=== PATIENT | female | born 1990 | race Caucasian/White ===

== ENCOUNTER 2017-06-14 20:52 | Emergency (ER) | payer SELFPAY, OTHER ==
[2017-06-15] MEDS: BACTRIM 160MG/800MG DS TAB PO (00:46)
[2017-06-17 00:06] LABS: BORDETELLA PARAPERTUSSIS PCR Negative (Negative); BORDETELLA PERTUSSIS BY PCR Negative (Negative)
== END 2017-06-15 00:47 | disposition home or self-care (01) ==
LOC: M ED 06-15 00:47
DX: J20.9 Acute bronchitis, unspecified (principal); J45.909 Unspecified asthma, uncomplicated; F17.210 Nicotine dependence, cigarettes, uncomplicated
CPT/HCPCS: 71046

== ENCOUNTER 2017-11-19 12:53 | Emergency (ER) | payer MEDICAID, OTHER, SELFPAY | END 2017-11-19 14:49 | disposition home or self-care (01) | LOC: M ED 12:53 | DX: O99.89 Other specified diseases and conditions complicating pregnancy, childbirth and the puerperium (principal); K01.1 Impacted teeth; Z3A.10 10 weeks gestation of pregnancy; Z87.891 Personal history of nicotine dependence; Z79.899 Other long term (current) drug therapy | CPT/HCPCS: 99282 ==

== ENCOUNTER → 2017-11-29 | Outpatient (CLI) | payer OTHER ==
[2017-11-29 13:35] LABS: BASO % 0.3 % (0.0-1.0); EOS # 0.1 10^3/uL (0.0-0.50); EOS % 1.1 % (0.0-3.0); HEMATOCRIT 38.2 % (36.0-47.0); HEMOGLOBIN 12.9 g/dl (12.0-15.5); IMMATURE GRANULOCYTE % 0.3 % (0-3.0); LYMPH # 1.1 10^3/uL (1.5-6.5); LYMPH % 14.3 % (24.0-44.0); MEAN CORPUSCULAR HEMOGLOBIN 30.5 pg (27.0-33.0); MEAN CORPUSCULAR HGB CONC 33.8 g/dl (32.0-36.5); MEAN CORPUSCULAR VOLUME 90.3 fl (80.0-96.0); MONO # 0.3 10^3/uL (0.0-0.8); MONO % 4.2 % (0.0-5.0); NEUTROPHILS # 5.9 10^3/uL (1.8-7.7); NEUTROPHILS % 79.8 % (36.0-66.0); PLATELET COUNT, AUTOMATED 259 10^3/uL (150-450); RED BLOOD COUNT 4.23 10^6/uL (4.00-5.40); RED CELL DISTRIBUTION WIDTH 12.7 % (11.5-14.5); WHITE BLOOD COUNT 7.4 10^3/uL (4.0-10.0)
[2017-11-29 13:52] LABS: TOTAL PROTEIN,RANDOM URINE 27.7 MG/DL (0.0-12.0)
[2017-11-29 13:59] LABS: ALT/SGPT 17 U/L (12-78); AST/SGOT 11 U/L (7-37); BILIRUBIN,TOTAL 0.2 MG/DL (0.2-1.0); CREATININE FOR GFR 0.55 MG/DL (0.55-1.30); FREE T4 0.98 NG/DL (0.76-1.46); GLOMERULAR FILTRATION RATE > 60.0 (>60); LDH LACTATE DEHYDROGENASE 150 U/L (84-246); URIC ACID 2.9 MG/DL (2.6-6.0)
[2017-11-29 15:07] LABS: CHLAMYDIA DNA AMPLIFICATION NEGATIVE (NEGATIVE); GC DNA AMPLIFICATION NEGATIVE (NEGATIVE)
[2017-11-30 13:04] LABS: RUBELLA IgG QUALITATIVE IMMUNE (IMMUNE)
[2017-11-30 13:05] LABS: HBsAg Prenatal NEGATIVE (NEGATIVE)
[2017-11-30 13:33] LABS: HIV 1&2 SCREEN CENTAUR NEGATIVE (NEGATIVE)
[2017-11-30 13:33] LABS: HEPATITIS C VIRUS ABY INDEX < 0.0 INDEX (<0.8)
== END ==
LOC: M SMT 09:57
DX: Z34.81 Encounter for supervision of other normal pregnancy, first trimester (principal); Z36.89 Encounter for other specified antenatal screening; Z3A.08 8 weeks gestation of pregnancy
CPT/HCPCS: 84460

== ENCOUNTER 2017-12-28 14:17 | Emergency (ER) | payer OTHER, MEDICAID ==
[2017-12-28 15:03] LABS: BASO % 0.2 % (0.0-1.0); EOS # 0.1 10^3/uL (0.0-0.50); EOS % 1.1 % (0.0-3.0); HEMATOCRIT 37.3 % (36.0-47.0); HEMOGLOBIN 12.5 g/dl (12.0-15.5); IMMATURE GRANULOCYTE % 0.5 % (0-3.0); LYMPH # 0.9 10^3/uL (1.5-6.5); LYMPH % 9.6 % (24.0-44.0); MEAN CORPUSCULAR HEMOGLOBIN 30.5 pg (27.0-33.0); MEAN CORPUSCULAR HGB CONC 33.5 g/dl (32.0-36.5); MONO # 0.5 10^3/uL (0.0-0.8); MONO % 4.9 % (0.0-5.0); NEUTROPHILS # 7.9 10^3/uL (1.8-7.7); NEUTROPHILS % 83.7 % (36.0-66.0); PLATELET COUNT, AUTOMATED 257 10^3/uL (150-450); RED CELL DISTRIBUTION WIDTH 12.4 % (11.5-14.5); WHITE BLOOD COUNT 9.5 10^3/uL (4.0-10.0)
[2017-12-28 15:10] LABS: KETONE, URINE AUTO RFX NEGATIVE (NEGATIVE); LEUKOCYTE ESTERASE UR AUTO RFX NEGATIVE (NEGATIVE); MUCUS, URINE RFX SMALL (NEGATIVE); NITRITE, URINE AUTO RFX NEGATIVE (NEGATIVE); RBC, URINE AUTO RFX 4 /HPF (0-3); SPECIFIC GRAVITY UR AUTO RFX 1.025 (1.002-1.035); SQUAM EPITHELIAL CELL UR AURFX 1 /HPF (0-6); WBC, URINE AUTO RFX 1 /HPF (0-3)
[2017-12-28] MEDS: NS 1,000 ML IV ×2 (15:46→16:49)
[2017-12-28 15:56] LABS: ANION GAP 8 MEQ/L (8-16); BLOOD UREA NITROGEN 11 MG/DL (7-18); CALCIUM LEVEL 8.6 MG/DL (8.5-10.1); CARBON DIOXIDE LEVEL 24 MEQ/L (21-32); CHLORIDE LEVEL 109 MEQ/L (98-107); CREATININE FOR GFR 0.55 MG/DL (0.55-1.30); GLOMERULAR FILTRATION RATE > 60.0 (>60); GLUCOSE, FASTING 106 MG/DL (70-100); HCG, SERUM QUANTITATIVE 65892 MIU/ML; MAGNESIUM LEVEL 1.8 MG/DL (1.8-2.4); POTASSIUM SERUM 3.8 MEQ/L (3.5-5.1); SODIUM LEVEL 141 MEQ/L (136-145)
== END 2017-12-28 17:20 | disposition home or self-care (01) ==
LOC: M ED 14:17
DX: O26.891 Other specified pregnancy related conditions, first trimester (principal); R11.0 Nausea; I95.1 Orthostatic hypotension; O99.281 Endocrine, nutritional and metabolic diseases complicating pregnancy, first trimester; E86.0 Dehydration; O99.511 Diseases of the respiratory system complicating pregnancy, first trimester; J45.909 Unspecified asthma, uncomplicated; Z3A.12 12 weeks gestation of pregnancy
CPT/HCPCS: 83735

== ENCOUNTER → 2018-01-04 | Outpatient (REF) | payer OTHER | LOC: M LAB REF 16:41 | DX: Z36.89 Encounter for other specified antenatal screening (principal) | CPT/HCPCS: 87086 ==

== ENCOUNTER 2018-02-06 10:49 | Emergency (ER) | payer OTHER ==
[2018-02-06] MEDS: NS 1,000 ML IV (11:34)
[2018-02-06 11:41] LABS: BASO % 0.2 % (0.0-1.0); EOS # 0.1 10^3/uL (0.0-0.50); EOS % 1.7 % (0.0-3.0); HEMATOCRIT 34.9 % (36.0-47.0); HEMOGLOBIN 11.5 g/dl (12.0-15.5); IMMATURE GRANULOCYTE % 0.7 % (0-3.0); LYMPH # 0.9 10^3/uL (1.5-6.5); LYMPH % 10.6 % (24.0-44.0); MEAN CORPUSCULAR HEMOGLOBIN 29.9 pg (27.0-33.0); MEAN CORPUSCULAR VOLUME 90.9 fl (80.0-96.0); MONO # 0.5 10^3/uL (0.0-0.8); MONO % 5.8 % (0.0-5.0); NEUTROPHILS # 6.6 10^3/uL (1.8-7.7); PLATELET COUNT, AUTOMATED 249 10^3/uL (150-450); RED BLOOD COUNT 3.84 10^6/uL (4.00-5.40); RED CELL DISTRIBUTION WIDTH 12.3 % (11.5-14.5); WHITE BLOOD COUNT 8.1 10^3/uL (4.0-10.0)
[2018-02-06 11:55] LABS: INR 0.96; PROTHROMBIN TIME 12.9 SECONDS (12.1-14.4)
[2018-02-06 11:56] LABS: FIBRINOGEN 533 MG/DL (221-452); PARTIAL THROMBOPLASTIN TIME 27.6 SECONDS (25.4-37.6)
[2018-02-06 11:59] LABS: D-DIMER QUANT 353.14 ng/ml (<500)
[2018-02-06 12:08] LABS: ALBUMIN/GLOBULIN RATIO 0.91 (1.00-1.93); ALKALINE PHOSPHATASE 47 U/L (45-117); ALT/SGPT 25 U/L (12-78); AST/SGOT 16 U/L (7-37); BILIRUBIN,DIRECT < 0.1 MG/DL (0.0-0.2); BILIRUBIN,TOTAL 0.2 MG/DL (0.2-1.0); TOTAL PROTEIN 6.3 GM/DL (6.4-8.2)
[2018-02-06 12:16] LABS: ANION GAP 7 MEQ/L (8-16); BLOOD UREA NITROGEN 8 MG/DL (7-18); CALCIUM LEVEL 8.4 MG/DL (8.5-10.1); CARBON DIOXIDE LEVEL 24 MEQ/L (21-32); CHLORIDE LEVEL 109 MEQ/L (98-107); FREE T4 0.85 NG/DL (0.76-1.46); GLOMERULAR FILTRATION RATE > 60.0 (>60); GLUCOSE, FASTING 85 MG/DL (70-100); SODIUM LEVEL 140 MEQ/L (136-145)
[2018-02-06 12:33] LABS: KETONE, URINE AUTO RFX NEGATIVE (NEGATIVE); LEUKOCYTE ESTERASE UR AUTO RFX NEGATIVE (NEGATIVE); NITRITE, URINE AUTO RFX NEGATIVE (NEGATIVE); RBC, URINE AUTO RFX 1 /HPF (0-3); SPECIFIC GRAVITY UR AUTO RFX 1.002 (1.002-1.035); SQUAM EPITHELIAL CELL UR AURFX 5 /HPF (0-6); WBC, URINE AUTO RFX 1 /HPF (0-3)
[2018-02-06] MEDS ORDERED: ISOVUE-370 76% 100ML VIAL (Q9967) As Ordered (12:39)
== END 2018-02-06 14:43 | disposition home or self-care (01) ==
LOC: M ED 10:49
DX: O9A.212 Injury, poisoning and certain other consequences of external causes complicating pregnancy, second trimester (principal); R55 Syncope and collapse; O99.412 Diseases of the circulatory system complicating pregnancy, second trimester; K44.9 Diaphragmatic hernia without obstruction or gangrene; Z3A.18 18 weeks gestation of pregnancy; Z87.891 Personal history of nicotine dependence
CPT/HCPCS: Q9967

== ENCOUNTER → 2018-02-07 | Outpatient (CLI) | payer OTHER ==
[~2018-02-07] MED LIST: AMOX500C PO; BACT800T5 PO; PREN1TAB11 PO
--- NOTE | 2018-02-08 03:12 | REP ---
Clinical: Anatomical evaluation. Comparison: None . Findings: Examination demonstrates a single live intrauterine in breech presentation. motion is identified by technologist. Placenta is noted anterior and grade grade 1 without evidence for placenta previa or abruption. Amniotic fluid volume is normal. Cervix measures 3.7 cm in length and appears closed. No evidence for nuchal cord. Gestational age by LMP 18 weeks 2-day with NANDINI 07/09/2018 . Gestational age by current measurements 18 weeks 3 days with NANDINI 07/08/2018 . FHR equals 141 beats per minute. BPD 4.2 cm 18 weeks 6 days HC 15.4 cm 18 weeks 3 days AC 12.8 cm 18 weeks 3 days FL 2.8 cm 18 weeks 4 days HL 2.7 cm 18 weeks 5 days HC/AC ratio 1.21 Estimated weight 242 grams ( 53rd percentile). Anatomical assessment demonstrates normal structures including cranium, choroid plexus, cavum, cerebellum/posterior fossa, facial features, lungs, diaphragm, stomach, cord insertion/three-vessel cord, kidneys/bladder, spine, and extremities. Impression: Single live intrauterine in breech presentation demonstrating appropriate interval growth. Limited evaluation of the heart/ventricular outflow tracts due to lie may warrant reevaluation and follow-up. Remainder of the anatomical assessment is complete and normal. Electronically Signed by Jean Carlos Sprague MD 02/08/2018 03:04 A
== END ==
LOC: M SMT 09:35
PROVIDERS: ATTEND Advanced Practice Midwife
DX: Z34.82 Encounter for supervision of other normal pregnancy, second trimester (principal); Z3A.18 18 weeks gestation of pregnancy

== ENCOUNTER → 2018-03-06 | Outpatient (CLI) | payer OTHER ==
--- NOTE | 2018-03-07 01:46 | REP ---
Clinical: Anatomical evaluation. Comparison: 02/07/2018 . Findings: Examination demonstrates a single live intrauterine in cephalic presentation. motion is identified by technologist. Placenta is noted anterior and grade grade 1 without evidence for placenta previa or abruption. Amniotic fluid volume is normal. Cervix measures 3.7 cm in length and appears closed. No evidence for nuchal cord. Gestational age by LMP 22 weeks 1 day with NANDNII 07/09/2018 . Gestational age by current measurements 22 weeks 4 days with NANDINI 07/06/2018 . FHR equals 150 beats per minute. Estimated weight 550 grams ( 74th percentile). Anatomical assessment demonstrates normal structures including cranium, choroid plexus, cavum, cerebellum/posterior fossa, facial features, lungs, four-chamber heart/ventricular outflow tracts, diaphragm, stomach, cord insertion/three-vessel cord, kidneys/bladder, spine, and extremities. Impression: 1. Single live intrauterine in cephalic presentation demonstrating appropriate interval growth. 2. Anatomical assessment is complete and normal. Electronically Signed by Jean Carlos Sprague MD 03/07/2018 01:38 A
== END ==
LOC: M SMT 13:03
PROVIDERS: ATTEND Specialist
DX: Z36.89 Encounter for other specified antenatal screening (principal); Z3A.22 22 weeks gestation of pregnancy

== ENCOUNTER → 2018-04-19 | Outpatient (CLI) | payer OTHER ==
[~2018-04-19] MED LIST changes: +CLAR1TAB2 PO; +FERR1TAB8; +RANI150T; +REGL10TA6 PO
[2018-04-19 15:56] LABS: HEMATOCRIT 31.2 % (36.0-47.0); MEAN CORPUSCULAR HEMOGLOBIN 28.7 pg (27.0-33.0); MEAN CORPUSCULAR HGB CONC 32.1 g/dl (32.0-36.5); MEAN CORPUSCULAR VOLUME 89.7 fl (80.0-96.0); PLATELET COUNT, AUTOMATED 289 10^3/uL (150-450); RED BLOOD COUNT 3.48 10^6/uL (4.00-5.40); WHITE BLOOD COUNT 11.1 10^3/uL (4.0-10.0)
== END ==
LOC: M LAB 14:02
PROVIDERS: ATTEND Advanced Practice Midwife
DX: O26.892 Other specified pregnancy related conditions, second trimester (principal); Z3A.00 Weeks of gestation of pregnancy not specified

== ENCOUNTER 2018-04-29 10:52 | Emergency (ER) | payer OTHER ==
[~2018-04-29] VITALS: Ht 172.7 cm; Wt 97.7 kg
[~2018-04-29 10:52] MED LIST changes: -CLAR1TAB2 PO; -FERR1TAB8; -RANI150T; -REGL10TA6 PO
[2018-04-29] MEDS ORDERED: NS 1,000 ML IV STA (11:39)
[2018-04-29] MEDS ORDERED: METOCLOPRAMIDE INJ 10MG/2ML VIAL (J2765) IV ONE (11:45)
[2018-04-29 12:15] LABS: HEMOGLOBIN 9.8 g/dl (12.0-15.5); MEAN CORPUSCULAR HEMOGLOBIN 28.1 pg (27.0-33.0); MEAN CORPUSCULAR HGB CONC 31.6 g/dl (32.0-36.5); MEAN CORPUSCULAR VOLUME 88.8 fl (80.0-96.0); PLATELET COUNT, AUTOMATED 275 10^3/uL (150-450); RED BLOOD COUNT 3.49 10^6/uL (4.00-5.40); WHITE BLOOD COUNT 9.9 10^3/uL (4.0-10.0)
[2018-04-29 12:21] LABS: AMORPHOUS SEDIMENT SMALL (NEGATIVE); APPEARANCE, URINE HAZY (CLEAR); BACTERIA, URINE AUTO NEGATIVE (NEGATIVE); BILIRUBIN, URINE AUTO NEGATIVE (NEGATIVE); BLOOD, URINE BLOOD NEGATIVE (NEGATIVE); COLOR, URINE YELLOW (YELLOW); GLUCOSE, URINE (UA) AUTO 3+ mg/dL (NEGATIVE); KETONE, URINE AUTO TRACE mg/dL (NEGATIVE); LEUKOCYTE ESTERASE, URINE AUTO NEGATIVE (NEGATIVE); MUCUS, URINE SMALL (NEGATIVE); NITRITE, URINE AUTO NEGATIVE (NEGATIVE); PROTEIN, URINE AUTO NEGATIVE (NEGATIVE); RBC, URINE AUTO 1 /HPF (0-3); SQUAMOUS EPITHELIAL CELL UR AU 10 /HPF (0-6); UROBILINOGEN, URINE AUTO 0.2 mg/dL (0.0-2.0); WBC, URINE AUTO 4 /HPF (0-3)
[2018-04-29 13:25] LABS: ALBUMIN 2.8 GM/DL (3.2-5.2); ALT/SGPT 17 U/L (12-78); BILIRUBIN,DIRECT < 0.1 MG/DL (0.0-0.2); BILIRUBIN,TOTAL 0.3 MG/DL (0.2-1.0); BLOOD UREA NITROGEN 9 MG/DL (7-18); CALCIUM LEVEL 8.5 MG/DL (8.5-10.1); CARBON DIOXIDE LEVEL 23 MEQ/L (21-32); CHLORIDE LEVEL 109 MEQ/L (98-107); CREATININE FOR GFR 0.48 MG/DL (0.55-1.30); GLOMERULAR FILTRATION RATE > 60.0 (>60); GLUCOSE, FASTING 102 MG/DL (70-100); POTASSIUM SERUM 3.9 MEQ/L (3.5-5.1); SODIUM LEVEL 140 MEQ/L (136-145); TOTAL PROTEIN 6.1 GM/DL (6.4-8.2)
[2018-04-29 14:01] VITALS: BP 104/53
== END 2018-04-29 14:07 | disposition home or self-care (01) ==
LOC: M ED 10:52
DX: G43.909 Migraine, unspecified, not intractable, without status migrainosus (principal)
CPT/HCPCS: 80053; 81001; 82248; 85027; 96361; 96374; 99284; J2765

== ENCOUNTER 2018-05-21 08:25 | Emergency (ER) | payer OTHER ==
[~2018-05-21] VITALS: Ht 172.7 cm; Wt 97.3 kg
[2018-05-21] MEDS ORDERED: RANI150T (08:31)
[2018-05-21] MEDS ORDERED: FERR1TAB8 (08:31)
[2018-05-21] MEDS ORDERED: METOCLOPRAMIDE 10 MG TAB PO ONE (08:45)
[2018-05-21] MEDS ORDERED: ACETAMINOPHEN TAB 650MG DOSE (2X325MG) PO ONE (08:45)
[2018-05-21] MEDS ORDERED: REGL10TA6 PO (09:07)
[2018-05-21 09:23] LABS: INFLUENZA A AMPLIFICATION NEGATIVE (NEGATIVE); INFLUENZA B AMPLIFICATION NEGATIVE (NEGATIVE)
[2018-05-21] MEDS ORDERED: CLAR1TAB2 PO (09:51)
[2018-05-21 10:10] VITALS: BP 116/64
== END 2018-05-21 10:10 | disposition home or self-care (01) ==
LOC: M ED 08:25
DX: O21.9 Vomiting of pregnancy, unspecified (principal); O99.513 Diseases of the respiratory system complicating pregnancy, third trimester; Z3A.33 33 weeks gestation of pregnancy; Z88.5 Allergy status to narcotic agent; Z79.899 Other long term (current) drug therapy

== ENCOUNTER → 2018-07-02 | Outpatient (CLI) | payer OTHER ==
[~2018-07-02] MED LIST changes: +CLAR1TAB2 PO; +COLA100C5 PO; +FERR1TAB8; +IBUP80TA PO; +PERCOCET PO; +PROT20TA11 PO; +RANI150T; +REGL10TA6 PO
--- NOTE | 2018-07-03 06:52 | REP ---
Clinical: Growth evaluation. Comparison: 03/06/2018 . Findings: Examination demonstrates a single live intrauterine in cephalic presentation. motion is identified by technologist. Placenta is noted anterior and grade grade zero without evidence for placenta previa or abruption. Amniotic fluid volume is normal. Cervix measures 3.3 cm in length and appears closed. No evidence for nuchal cord. Gestational age by LMP 39 weeks 0 days with NANDINI 07/09/2018 . Gestational age by current measurements 40 weeks 5 days with NANDINI 06/27/2018 . FHR equals 128 beats per minute. BPD 9.8 cm 40 weeks 1 day HC 36.9 cm (beyond range) AC 41.8 cm (beyond range) FL 8.1 cm 41 weeks 2 days HL 6.9 cm (beyond range) HC/AC ratio 0.88 Estimated weight 5240 grams ( greater than 97 percentile ). Amniotic fluid index: 16.5 cm (7.2 - 22.6) Umbilical cord SD ratio: 2.20 (1.60 - 2.60). Impression: Single live advanced gestation in cephalic presentation demonstrating greater than expected weight suggesting macrosomia. Electronically Signed by Jean Carlos Sprague MD 07/03/2018 06:44 A
== END ==
LOC: M RAD 08:45
PROVIDERS: ATTEND Advanced Practice Midwife
DX: O26.843 Uterine size-date discrepancy, third trimester (principal); Z3A.40 40 weeks gestation of pregnancy

== ENCOUNTER 2018-07-03 11:12 | Inpatient (IN) | payer OTHER ==
[~2018-07-03] VITALS: Ht 172.7 cm; Wt 102.6 kg
[~2018-07-03 11:12] MED LIST changes: -COLA100C5 PO; -IBUP80TA PO; -PERCOCET PO; -PROT20TA11 PO
[2018-07-03] MEDS ORDERED: PROT20TA11 PO (11:39)
[2018-07-03 11:46] VITALS: BP 134/81
[2018-07-03] MEDS ORDERED: LACTATED RINGER'S 1000 ML IV STA (13:18)
[2018-07-03] MEDS ORDERED: LR 1,000 ML IV SCH (13:18)
[2018-07-03] MEDS ORDERED: BICITRA 30ML SOLN UDC PO ONE (13:30)
[2018-07-03 14:17] LABS: HEMOGLOBIN 9.9 g/dl (12.0-15.5); MEAN CORPUSCULAR HEMOGLOBIN 24.2 pg (27.0-33.0); MEAN CORPUSCULAR HGB CONC 30.9 g/dl (32.0-36.5); MEAN CORPUSCULAR VOLUME 78.2 fl (80.0-96.0); PLATELET COUNT, AUTOMATED 355 10^3/uL (150-450); RED BLOOD COUNT 4.09 10^6/uL (4.00-5.40); WHITE BLOOD COUNT 10.4 10^3/uL (4.0-10.0)
--- NOTE | 2018-07-03 14:28 | NUR ---
L&D H&P 27yo at 39+1 weeks gestation. Presents for planned LTCS secondary to a diagnosis of macrosomia. Per recent US on 07/02/18, EFW is >5000g. Denies VB/LOF/uctx. Reports +FM. 100% satisfied parity, requesting tubal sterilization at time of . She has been counseled on the risk of regret at her age. She insists on proceeding with sterilization. PMH: Depression/anxiety, asthma SH: D&C Meds: Buspar, PNV All: [facility] C[facility] RECEPTIONIST: no dysplasia or STI/gHSV OB: G1 Sochx: no t/e/d Famhx: DM, HTN, thyroid PN labs: A+, Rub Immunie, HepBsAg NR, RPR NR, normal GCT, GBS positive Normotensive, normal HR, afebrile H: RRR no m/g/r L: CTA b/l no w/c/r/r ABD: soft, nt, nd, fundal height greater than EGA. Ext: no c/c/e See official US report: EFW >5000g A/P: 27yo at 39+1 weeks. Dx: macrosomia >5,000g; full term gestation. -Plan is for PLTCS. R/b/a/i reviewed and informed consent obtained. -Preparations for OR being made. Isidra Sarkar DO
[2018-07-03] MEDS ORDERED: OXYTOCIN INJ 10 UNITS/ML VIAL (J2590) As Ordered ONE (14:47)
[2018-07-03] MEDS ORDERED: MORPHINE PRES-FREE INJ 10 MG/10 ML VIAL (J2274) As Ordered ONE (14:47)
[2018-07-03] MEDS ORDERED: BUPIVACAINE/DEXTROSE 0.75% 2 ML AMP As Ordered ONE (14:59)
[2018-07-03] MEDS ORDERED: diphenhydrAMINE INJ 50MG/ML VIAL (J1200) IV PRN ×2 (15:06→16:30)
[2018-07-03] MEDS ORDERED: ONDANSETRON 4MG/2ML VIAL (J2405) IV PRN ×3 (15:06→16:30)
[2018-07-03] MEDS ORDERED: METOCLOPRAMIDE INJ 10MG/2ML VIAL (J2765) IV PRN (15:06)
[2018-07-03] MEDS ORDERED: NALOXONE INJ 0.4 MG/1 ML VIAL (J2310) IV PRN ×2 (15:06)
[2018-07-03] MEDS ORDERED: NALBUPHINE HCL 10 MG/ML AMP (J2300) IV PRN ×2 (15:06→16:30)
[2018-07-03] MEDS ORDERED: OXYTOCIN DRIP 30 UNITS in APPROPRIATE DILUENT 1 EA IV SCH (16:12)
[2018-07-03] MEDS ORDERED: RHOGAM 300 MCG (1500 IU) INJ (J2790) IM SCH (16:15)
[2018-07-03] MEDS ORDERED: MEASLES,MUMPS,RUBELLA VACCINE INJ (MMR-II) (90707) SC SCH (16:15)
[2018-07-03] MEDS ORDERED: PERCOCET 5MG/325MG TAB PO PRN (16:15)
[2018-07-03] MEDS ORDERED: PROMETHAZINE 25 MG TAB PO PRN (16:15)
--- NOTE | 2018-07-03 16:25 | NUR ---
Operative Note Date of procedure: 07/03/18 Procedure: Primary low-transverse section with [place] bilateral tubal ligation Anesthesia: Spinal with Duramorph Preoperative diagnosis: 1. 39+1 weeks EGA 2. macrosomia Postoperative diagnosis: Same Indication: US EFW > 5,000g, full term gestation at 39+1 weeks Primary surgeon: Reyes Sarkar D.O., Megan Villalpando Procurement Analyst: Isidra Lui CNM (essential role in surgical site exposure and assistance with delivery) Estimated blood loss:900 ml IV fluids administered: 1500 ml crystalloid Drains: Damon catheter. Urine output: 100 ml [place] data: Apgars 8 and 9. Birthweight : 5170g, 11lbs 6oz. Male. Preoperative/prophylactic antibiotics: Ancef 2 g IV (given within 30 minutes prior to surgical start time). Intraoperative findings: Occiput posterior presentation. Baby had a small/superficial right cheek laceration 1.5cm Specimen(s): bilateral fallopian tube segments Procedure: The patient was counseled and consented on the risks, benefits, indications and alternatives of the procedure. Informed consent was obtained and placed in the c [place]. She was taken to the operating room with an IV running. She was placed on the operating table. Spinal anesthesia was administered without any difficulty and found to be adequate. She was placed in the dorsal supine position with a leftward tilt. Sequential compression devices were placed on the lower extremities. A Damon catheter was placed under sterile conditions. She was sterilely prepped and draped. A surgical timeout was performed per protocol. Spinal anesthesia was again found to be adequate. Using the 10 blade a Pfannenstiel incision was performed. The 10 blade was used to dissect down to the level of the rectus sheath fascia. The rectus sheath fas zandra was incised at the midline, and the fascial incision was extended with Man scissors. Quirino clamps were used to grasp the superior and inferior aspect of the fascial incision and the rectus muscle bellies were dissected off sharply and bluntly. The midline was identified and the rectus muscle bellies were manually . The peritoneum was identified and clamped with hemostats and elevated. The peritoneum was then incised with Metzenbaum scissors. Entry into the intraperitoneal cavity was achieved. The peritoneal opening was extended with manual stretch . There was good visualization of both the bladder and the lower uterine segment. The Mobius retractor was placed. The vesicouterine peritoneum was dissected with Metzenbaum scissors and blunt dissection. A low transverse uterine incision was made with a new 10 blade. The hysterotomy was extended with manual stretch. The amniotic sac was protruding and then artificially ruptured. Clear amniotic fluid was noted. The baby's head delivered through the hysterotomy with ease. The remainder of the body delivered with ease. The cord was doubly clamped and cut and the baby was handed off to awaiting care. See data above. The placenta was manually removed and noted to be fully intact. The uterus was kept in situ. The intrauterine cavity was cleared of all clot and debris with a laparotomy sponge. The hysterotomy was closed with 0 Vicryl in running, locked fashion. A second imbricating closure was performed over the initial layer closure using 0 Vicryl. The hysterotomy was noted to be hemostatic. The posterior cul-de-sac was irrigated and cleared of all clot and debris. Attention was turned to performing the [place] bilateral tubal ligation. The right fallopian tube was followed out to fimbriated end. The mid isthmic portion was grasped with the Bartolome and elevated. A window was created within the underlying broad ligament with the Bovie. Plain gut suture was used to tie the 2 ends, and the intervening segment was excised with Metzenbaum scissors. In the same exact fashion, a [place] tubal ligation was p erformed on the left side. Both fallopian tube segments were sent to pathology for permanent section. Both adnexa were noted to be hemostatic. The paracolic gutters were cleared of all clot and debris with damp laparotomy sponges. The hysterotomy was reinspected and noted to be hemostatic. The adnexa were reinspected and noted to be hemostatic. Sponge, needle and instrumen t counts were correct. The peritoneum was closed with 3-0 Vicryl in running fashion. The rectus muscle bellies were reapproximated with 3-0 Vicryl with a se mara of interrupted sutures. The rectus muscle bellies were noted to be hemostatic. The fascia was closed with 0 Vicryl in running fashion. Sponge, needle and instrument counts were again correct. The subcutaneous layer was irrigated. Small subcutaneous bleeders were cauterized with Bovie. The subcutaneous layer was reapproximated with 3-0 Vicryl in running fashion. The skin was closed with 3-0 Monocryl in subcuticular fashion. A bandage was placed over the closed incision. The final sponge, instrument and needle count was correct. She tolerated the entire procedure very well. She was transferred to the PACU in good and stable condition. Dr. Reyes Sarkar D.O., F.A.Kelly.Naila.G
[2018-07-03] MEDS ORDERED: OXYTOCIN 30 UNITS IN 0.9% NaCl 500ML IV BAG (J2590) As Ordered ONE (16:27)
[2018-07-03] MEDS ORDERED: MEPERIDINE INJ 25 MG/ML VIAL (J2175) As Ordered ONE (16:29)
[2018-07-03] MEDS ORDERED: fentaNYL 100 MCG/2 ML INJECTION (J3010) IV PRN (16:30)
[2018-07-03] MEDS ORDERED: KETOROLAC 30 MG/ML VIAL (J1885) IV PRN (16:30)
[2018-07-03] MEDS: MEPERIDINE INJ 25 MG/ML VIAL (J2175) IV PRN ×2 (16:33→16:58)
[2018-07-03 17:30] VITALS: BP 140/82
[2018-07-03 18:00] VITALS: BP 128/80
[2018-07-03] MEDS: KETOROLAC 30 MG/ML VIAL (J1885) IV SCH (18:31)
[2018-07-03 19:18] VITALS: BP 131/83
[2018-07-03] MEDS: DOCUSATE SODIUM 100 MG CAP PO SCH (20:56)
[2018-07-03 21:00] VITALS: BP 145/94
[2018-07-04] MEDS: LR 1,000 ML IV SCH ×4 (00:12→16:12)
[2018-07-04] MEDS: KETOROLAC 30 MG/ML VIAL (J1885) IV SCH ×3 (00:15→12:03)
[2018-07-04 01:58] VITALS: BP 130/72
[2018-07-04 05:54] VITALS: BP 137/77
[2018-07-04] MEDS ORDERED: SIMETHICONE 80 MG CHEW TAB PO PRN (06:15)
[2018-07-04 08:01] LABS: HEMATOCRIT 26.2 % (36.0-47.0); HEMOGLOBIN 8.1 g/dl (12.0-15.5); MEAN CORPUSCULAR HGB CONC 30.9 g/dl (32.0-36.5); MEAN CORPUSCULAR VOLUME 77.7 fl (80.0-96.0); RED BLOOD COUNT 3.37 10^6/uL (4.00-5.40)
[2018-07-04 08:09] LABS: PLATELET COUNT, AUTOMATED 241 10^3/uL (150-450)
[2018-07-04] MEDS: PRENATAL VITAMINS CHEWABLE TABLET PO SCH (08:36)
[2018-07-04] MEDS: DOCUSATE SODIUM 100 MG CAP PO SCH ×2 (08:37→20:15)
[2018-07-04] MEDS ORDERED: ADACEL/BOOSTRIX VACCINE (DIPHTH/PERTUSS/ACELL/TETANUS)0.5ML SYR (90715) IM ONE (09:00)
[2018-07-04 10:00] VITALS: BP 129/79
[2018-07-04 14:00] VITALS: BP 142/89
[2018-07-04 18:00] VITALS: BP 154/74
[2018-07-04] MEDS: IBUPROFEN 800 MG TAB PO SCH (19:21)
[2018-07-04 22:00] VITALS: BP 140/83
[2018-07-05 02:00] VITALS: BP 141/88
[2018-07-05] MEDS: IBUPROFEN 800 MG TAB PO SCH ×2 (03:31→12:00)
[2018-07-05 06:00] VITALS: BP 138/86
--- NOTE | 2018-07-05 06:57 | NUR ---
Discharge Summary Date of admission: 07/03/2018 Date of discharge: 07/05/2018 Admitting diagnosis: 39+1 weeks gestation, macrosomia Discharge diagnosis: Status post, primary low transverse section. Single, liveborn delivered via . Indication: macrosomia Discharge Summary: 27 year-old G1 now P1. She was admitted on 07/03/2018 at 39+1 weeks EGA with a diagnosis of. macrosomia per ultrasound, with an EFW greater than 5000 g. This prompted a primary low transverse delivery under spinal anesthesia. The delivery was uncomplicated and productive of a baby weighing 11 lbs. 6 oz, 5170 g . The patient's intraoperative and postoperative courses were uncomplicated. By postoperative day #2, the patient was meeting all discharge criteria. Her pain was well controlled on oral pain meds. She was ambulating without assistance, voiding spontaneously, tolerating a regular diet, and her lochia/bleeding was minimal. Physical exam on date of discharge: Vitals: normotensive, normal HR, afebrile Heart: regular rate and rhythm with no murmurs, gallops, rubs. Lungs: clear to auscultation bilaterally, no wheezes, crackles, rales, ronchi Abd: soft, non-distended, appropriately tender. Normoactive bowel sounds. Incision: clean, dry, intact without surrounding erythema or induration. Ext: non-edematous, non-tender, negative Irene's sign bilaterally Assessment/Plan: 27 year-old G1 now P1001 status post primary low transverse delivery on. 07/03/2018 now postoperative day #2. Hemodynamically stable, afebrile, with good pain control. Meeting all discharge criteria. -Routine infectious, fever, pain, and bleeding precautions reviewed -Surgical wound/incisional care / precautions reviewed. -Discharge medications: Percocet, Motrin, Colace. -Outpatient follow up in 1-2 weeks for a routine incision / postoperative check. Dr. Reyes Sarkar, DO, FACOG
[2018-07-05] MEDS ORDERED: PERCOCET PO (06:59)
[2018-07-05] MEDS ORDERED: IBUP80TA PO (06:59)
[2018-07-05] MEDS ORDERED: COLA100C5 PO (06:59)
[2018-07-05] MEDS: PRENATAL VITAMINS CHEWABLE TABLET PO SCH (08:29)
[2018-07-05] MEDS: DOCUSATE SODIUM 100 MG CAP PO SCH (08:29)
[2018-07-05] MEDS: PERCOCET 5MG/325MG TAB PO PRN ×2 (09:05→13:50)
== END 2018-07-05 15:00 | disposition home or self-care (01) | DRG 785 ==
LOC: M LDO 11:12 → M LDI 13:38 → M OBS 17:21
PROVIDERS: ADMIT Obstetrics & Gynecology; ATTEND Obstetrics & Gynecology
PROC: 0UB70ZZ Excision of Bilateral Fallopian Tubes, Open Approach (ICD-10-PCS; 2018-07-03)
PROC: 10D00Z1 Extraction of Products of Conception, Low, Open Approach (ICD-10-PCS; principal; 2018-07-03 16:18)
DX: O36.63X0 Maternal care for excessive fetal growth, third trimester, not applicable or unspecified (principal); Z30.2 Encounter for sterilization; Z37.0 Single live birth; Z3A.39 39 weeks gestation of pregnancy

== ENCOUNTER 2020-02-15 11:36 | Emergency (ER) | payer OTHER ==
[~2020-02-15] VITALS: Ht 170.2 cm; Wt 90.0 kg
[~2020-02-15 11:36] MED LIST changes: +COLA100C5 PO; +IBUP80TA PO; +PERCOCET PO; +PROT20TA11 PO
--- NOTE | 2020-02-15 12:56 | REP ---
INDICATION: Syncope/near-syncope COMPARISON: 06/14/2017 TECHNIQUE: Portable AP view of the chest FINDINGS: The mediastinum and cardiac silhouette are stable and within normal limits for portable technique. The lung grier are clear without acute consolidation, effusion, or pneumothorax. Skeletal structures are intact. IMPRESSION: No acute cardiopulmonary process appreciated. <Electronically signed by eJan Carlos Sprague > 02/15/20 [id number]
[2020-02-15 13:05] LABS: VENOUS BASE EXCESS -2.2 (-2.0-2.0); VENOUS HCO3 24.2 MEQ/L (23.0-27.0); VENOUS O2 SATURATION 75.8 % (60.0-80.0); VENOUS PARTIAL PRESSURE CO2 48.2 mmHg (38.0-50.0); VENOUS PARTIAL PRESSURE O2 43.8 mmHg (30.0-50.0); VENOUS PH 7.319 UNITS (7.330-7.430); VENOUS STANDARD HCO3 22.2 MEQ/L; VENOUS TOTAL CO2 25.7 MEQ/L (24.0-28.0)
[2020-02-15 13:12] LABS: BASO % 0.6 % (0.0-1.0); EOS # 0.1 10^3/uL (0.0-0.5); HEMATOCRIT 36.6 % (36.0-47.0); HEMOGLOBIN 11.2 g/dl (12.0-15.5); LYMPH # 1.1 10^3/uL (1.5-5.0); LYMPH % 20.8 % (24.0-44.0); MEAN CORPUSCULAR HGB CONC 30.6 g/dl (32.0-36.5); MEAN CORPUSCULAR VOLUME 84.9 fl (80.0-96.0); MONO # 0.4 10^3/uL (0.0-0.8); MONO % 6.9 % (0.0-5.0); NEUTROPHILS # 3.6 10^3/uL (1.5-8.5); NEUTROPHILS % 70.5 % (36.0-66.0); PLATELET COUNT, AUTOMATED 342 10^3/uL (150-450); RED BLOOD COUNT 4.31 10^6/uL (4.00-5.40); WHITE BLOOD COUNT 5.1 10^3/uL (4.0-10.0)
--- NOTE | 2020-02-15 13:24 | REP ---
INDICATION: Syncope COMPARISON: 06/15/2015 TECHNIQUE: Axial noncontrast images from the skull base to the vertex with coronal reformations. This CT examination was performed using the following dose reduction techniques: Automated exposure control, adjustment of mA and/or kv according to the patient's size, and use of iterative reconstruction technique. FINDINGS: The ventricles, sulci, and cisterns are normal in position and appearance. Rodriguez-white differentiation is maintained. No acute intracranial hemorrhage, mass/mass effect, pathology or trauma/injury. No evidence for acute infarction. No extra-axial fluid collection. Calvarium is intact. Paranasal sinuses and mastoid air cells are clear. IMPRESSION: Normal noncontrast head CT. No evidence for acute intracranial pathology or trauma/injury. <Electronically signed by Jean Carlos Sprague > 02/15/20 [id number]
[2020-02-15] MEDS ORDERED: MECLIZINE 25 MG TABLET PO ONE (13:30)
[2020-02-15 13:40] LABS: BLOOD UREA NITROGEN 14 MG/DL (7-18); CALCIUM LEVEL 9.1 MG/DL (8.5-10.1); CARBON DIOXIDE LEVEL 28 MEQ/L (21-32); CHLORIDE LEVEL 108 MEQ/L (98-107); CK-MB VALUE MASS 1.7 NG/ML (<3.6); CPK CREATINE PHOSPHOKINASE 132 U/L (26-192); CREATININE FOR GFR 0.66 MG/DL (0.55-1.30); GLOMERULAR FILTRATION RATE > 60.0 (>60); GLUCOSE, FASTING 85 MG/DL (70-100); MAGNESIUM LEVEL 2.2 MG/DL (1.8-2.4); MB/CK RELATIVE INDEX 1.29 (< OR =4); SODIUM LEVEL 141 MEQ/L (136-145); TROPONIN I < 0.02 NG/ML (< 0.10)
[2020-02-15] MEDS ORDERED: MECL1TAB31 PO (14:10)
[2020-02-15 14:15] VITALS: BP 120/51
[2020-02-15 14:30] LABS: INR 1.06
--- NOTE | 2020-02-16 05:37 | ECGEPIP ---
[facility] - ED Test Date: 2020-02-15 Pat Name: HARRIS HERNANDEZ Department: Room: - Gender: Female [employer] Att[employer]: : 1990 Requested By: OLIVA UMANA Order Number: [id number] Reading MD: Rinku Candelaria Measurements Intervals [place] Rate: 75 P: 39 [place]: 154 QRS: 15 QRSD: 82 T: -2 QT: 372 QTc: 416 Interpretive Statements SINUS RHYTHM WITH SINUS ARRHYTHMIA POOR R WAVE PROGRESSION NONSPECIFIC T-WAVE ABNORMALITY SIMILAR TO 02/06/18 Electronically Signed on 02-16-2020 5:36:58 EST by Rinku Candelaria
== END 2020-02-15 14:30 | disposition home or self-care (01) ==
LOC: M ED 11:36
DX: R42 Dizziness and giddiness (principal); R55 Syncope and collapse; R53.1 Weakness; J45.909 Unspecified asthma, uncomplicated

== ENCOUNTER 2021-10-22 12:48 | Emergency (ER) | payer OTHER ==
[~2021-10-22] VITALS: Ht 172.7 cm; Wt 94.6 kg
[2021-10-22 12:48] VITALS: BP 161/81
[~2021-10-22 12:48] MED LIST changes: +MECL1TAB31 PO
[2021-10-22] MEDS ORDERED: BACT800T5 PO (12:56)
== END 2021-10-22 13:21 | disposition left against medical advice (07) ==
LOC: M ED 12:48
DX: Z53.21 Procedure and treatment not carried out due to patient leaving prior to being seen by health care provider (principal)

== ENCOUNTER 2023-06-28 20:08 | Emergency (ER) | payer OTHER ==
[~2023-06-28] VITALS: Ht 172.7 cm; Wt 94.0 kg
[~2023-06-28 20:08] MED LIST changes: -DOXY100C82 PO
[2023-06-29] MEDS: ACETAMINOPHEN TAB 650MG DOSE (2X325MG) PO ONE (03:16)
[2023-06-29 03:24] LABS: BASO % 0.2 % (0.0-1.0); EOS % 0.1 % (0.0-3.0); HEMATOCRIT 36.1 % (36.0-47.0); HEMOGLOBIN 11.7 g/dl (12.0-15.5); LYMPH # 0.8 10^3/uL (1.5-5.0); LYMPH % 3.9 % (24.0-44.0); MEAN CORPUSCULAR HEMOGLOBIN 27.4 pg (27.0-33.0); MEAN CORPUSCULAR HGB CONC 32.4 g/dl (32.0-36.5); MEAN CORPUSCULAR VOLUME 84.5 fl (80.0-96.0); MONO # 1.1 10^3/uL (0.0-0.8); MONO % 5.4 % (2.0-8.0); NEUTROPHILS % 87.3 % (36.0-66.0); PLATELET COUNT, AUTOMATED 311 10^3/uL (150-450); RED BLOOD COUNT 4.27 10^6/uL (4.00-5.40); WHITE BLOOD COUNT 19.5 10^3/uL (4.0-10.0)
[2023-06-29 03:44] LABS: BLOOD UREA NITROGEN 16 MG/DL (9-23); CALCIUM LEVEL 8.7 MG/DL (8.5-10.1); CARBON DIOXIDE LEVEL 24 MMOL/L (20-31); CHLORIDE LEVEL 104 MMOL/L (98-107); CREATININE FOR GFR 0.74 MG/DL (0.55-1.30); GLOMERULAR FILTRATION RATE > 60.0 (>60); GLUCOSE, FASTING 117 MG/DL (60-100); POTASSIUM SERUM 3.5 MMOL/L (3.5-5.1); SODIUM LEVEL 135 MMOL/L (136-145)
[2023-06-29 03:51] LABS: PROCALCITONIN 1.57 ng/ml
[2023-06-29] MEDS: KETOROLAC 30 MG/ML 1ML VIAL IV ONE (04:46)
[2023-06-29] MEDS: NS 1,000 ML IV ONE (04:47)
[2023-06-29] MEDS: cefTRIAXone SOD 2 GM in D5W MINI-BAG PLUS 50 ML IV ONE (04:47)
[2023-06-29] MEDS ORDERED: ISOVUE-370 76% 100ML VIAL As Ordered ONE (04:49)
[2023-06-29 05:17] LABS: LIPASE 23 U/L (12-53)
[2023-06-29 05:19] LABS: ALBUMIN 3.6 G/DL (3.2-5.2); ALKALINE PHOSPHATASE 86 U/L (46-116); ALT/SGPT 37 U/L (7.0-40); AST/SGOT 14 U/L (<34); BILIRUBIN,DIRECT 0.3 MG/DL (<0.4); BILIRUBIN,TOTAL 0.8 MG/DL (0.3-1.2); TOTAL PROTEIN 7.5 G/DL (5.7-8.2)
[2023-06-29 07:33] VITALS: TEMP 97.8
[2023-06-29 08:00] VITALS: BP 124/62; O2SAT 96
[2023-06-29 08:08] VITALS: O2SAT 99
[2023-06-29] MEDS ORDERED: DOXY100C82 PO (08:18)
== END 2023-06-29 08:26 | disposition home or self-care (01) ==
LOC: M ED 20:08
DX: J18.9 Pneumonia, unspecified organism (principal); Z79.2 Long term (current) use of antibiotics
CPT/HCPCS: 71260; 74177; 80048; 80076; 81001; 83605; 83690; 84145; 85025; 87040; 87486; 87581; 87633; 87798; 87880; 96365; 96375; 99284; J0696; J1885; Q9967

== ENCOUNTER → 2023-06-28 | Outpatient (REF) | payer OTHER ==
[~2023-06-28] MED LIST changes: +DOXY100C82 PO; +MECL-209 PO; -MECL1TAB31 PO
== END ==
LOC: M LAB REF 12:57
PROVIDERS: ATTEND Physician Assistant
DX: B34.9 Viral infection, unspecified (principal)